=== PATIENT | female | born 1965 | race Caucasian/White ===

== ENCOUNTER 2022-08-08 09:55 | Emergency (ER) | payer OTHER ==
[2022-08-08] MEDS ORDERED: Ondansetron 4 MG/2 ML SDV IVPUSH ONE (10:13)
[2022-08-08] MEDS ORDERED: Lactated Ringers 1,000 ML IV SCH (10:15)
[2022-08-08] MEDS ORDERED: Iopamidol 755 MG/ML 500 ML Multipack Bottle IVPUSH ONE (10:37)
[2022-08-08 10:44] LABS: CARBON DIOXIDE,CO2 19.7 mmol/L (21.0-32.0); POTASSIUM,K 3.4 mmol/L (3.5-5.1)
[2022-08-08] MEDS ORDERED: Acetaminophen 325 MG Tab PO ONE (11:42)
[2022-08-08] MEDS ORDERED: Lidocaine 5% 700 MG Patch TOP ONE (11:42)
== END 2022-08-08 12:52 | disposition home or self-care (01) ==
LOC: MW.ED 09:55
DX: S06.0X1A Concussion with loss of consciousness of 30 minutes or less, initial encounter (principal); J45.909 Unspecified asthma, uncomplicated; Z88.8 Allergy status to other drugs, medicaments and biological substances; Z88.2 Allergy status to sulfonamides; V40.5XXA Car driver injured in collision with pedestrian or animal in traffic accident, initial encounter
CPT/HCPCS: 70450; 70496; 70498; 71260; 73060; 74177; 80053; 80305; 84484; 85025; 85610; 85730; 93005; 96361; 96374; 99285; A9270; J2405; J7120; Q9967